=== PATIENT | female | born 1990 | race Caucasian/White ===

== ENCOUNTER 2016-12-19 12:05 | Emergency (ER) | payer SELFPAY ==
--- NOTE | ~2016-12-19 | ER ---
PATIENT'S NAME: BRODY MAKI [facility] AGE: 26 Y [address] ROOM: [place] [address] LOCATION: [facility] ADMIT DATE: 12/19/2016 ER/Outpatient Report DISCHARGE DATE: 12/19/2016 FAMILY PHYSICIAN: David Verdin MD ATTENDING PHYSICIAN: Jacob Pond Time of Arrival: Time of Evaluation: CHIEF COMPLAINT: Left chest boil. HISTORY OF PRESENT ILLNESS: The patient states she has a sore on the left medial breast that began approximately a month ago. States that she has been putting heat to the area, washing it, and has not been able to get it to drain. Reports it has become more and more painful in the last week especially today, it is reddened around it. She has not seen anybody regarding this. She did have a similar lesion under her right arm in the axillary area last March that had to be lanced and that cleared up. ALLERGIES: SHE HAS NO KNOWN ALLERGIES. MEDICATIONS: No current medications. PAST MEDICAL HISTORY: Boils under her right arm that were lanced in March of 2016. Last menstrual period, she states was a week ago. SOCIAL HISTORY: She states she works half pack per day and has for the last 10 years. Denies use of drugs. Seldom use of alcohol. States that she doctors with Dr. Verdin in [place]. REVIEW OF SYSTEMS: All negative other than those mentioned in the HPI. PHYSICAL EXAMINATION: VITAL SIGNS: She weighs 61.8 kg. Blood pressure is 114/62, pulse is 72, respirations 16, temperature of 97.3, and O2 saturation is 97% on room air. GENERAL APPEARANCE: She is awake, alert, and oriented x4. SKIN: [place], warm, and dry. RESPIRATIONS: Even and nonlabored. Lung sounds are clear throughout. PATIENT'S NAME: BRODY MAKI [facility] AGE: 26 Y [address] ROOM: [place] [address] LOCATION: [facility] ADMIT DATE: 12/19/2016 ER/Outpatient Report DISCHARGE DATE: 12/19/2016 FAMILY PHYSICIAN: David Verdin MD ATTENDING PHYSICIAN: Jacob Pond HEART: Regular rate and rhythm. BREASTS: The patient has a reddened area of the right breast that is approximately 1.5 cm x 1.5 cm in diameter. No open areas noted. It is very tender to touch. No firmness underneath the redness is noted. EMERGENCY DEPARTMENT COURSE: Dr. Pond was consulted. He did ultrasound the area and examined the patient. Topical lidocaine was used to anesthetize the area and then it was cleansed well and aspiration of the area was completed by Dr. Pond. Fluid was sent to the lab for culture and Gram stain. It was a purulent looking fluid. The patient was informed on the need to keep the area as clean as possible and if it did not improve with antibiotics in the next 2 to 3 days, she needs to follow up with her primary provider and possibly see a surgeon. IMPRESSION: Left breast cellulitis. PLAN: Home, rest. Prescription was written for Bactrim DS to take for 10 days. She is to wash the area at least daily with soap and water and keep it as clean as possible. Follow up with her primary provider in 2 to 3 days. She verbalized understanding. NILESH BELTRAN APRN FOR MD ARIEL WILLIAMSON/nandini /[id number] I have personally seen and evaluated this patient. I aspirated the abscess pocket. I agree with assessment and plan as documented above. Jacob Pond MD d: 12/19/161809 t: 12/29/161935, OUTPATIENT REPORT
== END 2016-12-19 12:55 | disposition disaster alternative care site (69) ==
LOC: GMED 12:05
PROC: 0H9U3ZX Drainage of Left Breast, Percutaneous Approach, Diagnostic (ICD-10-PCS; principal; 2016-12-19)
DX: N61.0 Mastitis without abscess (principal); F17.210 Nicotine dependence, cigarettes, uncomplicated

== ENCOUNTER 2017-02-10 16:59 | Emergency (ER) | payer SELFPAY | END 2017-02-10 18:00 | disposition disaster alternative care site (69) | LOC: GMED 16:59 | DX: Z53.21 Procedure and treatment not carried out due to patient leaving prior to being seen by health care provider (principal) ==